=== PATIENT | male | born 1935 | race Caucasian/White ===

== ENCOUNTER → 2019-07-14 | Outpatient (CLI) | payer OTHER | LOC: SJCVCIMAG 06-25 10:59 | DX: I49.3 Ventricular premature depolarization (principal); I48.0 Paroxysmal atrial fibrillation; I42.9 Cardiomyopathy, unspecified; J44.9 Chronic obstructive pulmonary disease, unspecified; I25.10 Atherosclerotic heart disease of native coronary artery without angina pectoris; I13.0 Hypertensive heart and chronic kidney disease with heart failure and stage 1 through stage 4 chronic kidney disease, or unspecified chronic kidney disease; N18.9 Chronic kidney disease, unspecified; I50.9 Heart failure, unspecified; E78.00 Pure hypercholesterolemia, unspecified; R60.9 Edema, unspecified; Z79.82 Long term (current) use of aspirin; Z79.899 Other long term (current) drug therapy; Z87.891 Personal history of nicotine dependence ==

== ENCOUNTER → 2019-07-22 | Outpatient (CLI) | payer OTHER ==
[~2019-07-22] VITALS: Ht 170.2 cm; Wt 90.7 kg
[~2019-07-22] MED LIST: ALLOPURINOL 10100 M1 PO; ALPHAGAN P15 ML; ASA81BEC PO; B COMPLEX WITH1 EAC1 PO; BENICAR40 MG PO; BYSTOLIC10 MG PO; CALCIUM500 MG PO; CARDIZEM SR 60M60 MG PO; NAPROXEN SODIU220 M2 PO; PAIN RELIEF325 MG PO; PROAIR HFA8.5 GM INH; SPIRIVA RESPIMAT4 G1 INH; SUPER THERAVIT1 EACH PO; SYMBICORT160 MCG/4. INH; ULTRAM50 MG PO; VITAMIN D210 MCG PO; XALATAN2.5 ML OPHTHALMIC; ZANAFLEX4 M2 PO; ZETIA10 MG PO; ZOCOR 20 MG TAB20 M1 PO
[2019-07-22 08:12] VITALS: BP 181/80
[2019-07-22 08:14] LABS: HEMATOCRIT 40.2 % (42.0-52.0); HEMOGLOBIN 13.7 gm/dL (14.0-18.0); MCH 35.5 pg (26.0-34.0); MCHC 34.2 g/dL (28.0-37.0); MCV 103.7 fL (80.0-100.0); RBC 3.88 mil/uL (4.50-6.00); RDW 13.2 % (10.5-14.5); WBC 8.1 thou/uL (4.0-11.0)
[2019-07-22 08:22] LABS: CALCIUM 9.3 mg/dL (8.5-10.1); CREATININE 1.7 mg/dL (0.7-1.3); POTASSIUM 4.8 mmol/L (3.5-5.1)
--- NOTE | 2019-07-22 08:53 | EKG ---
[facility] [place] [address] ELECTROCARDIOGRAM REPORT Name: SUNITA AMADO Room #: [facility].#: [id number] Admission: 07/22/19 Attend Phys: Silvestre Lacey MD Discharge: Date of : 31 Report #: [id number] THIS REPORT FOR: cc: Jesu Estrada MD, Curtis MD Lundgren,Chuck Spence MD [facility] ~ THIS REPORT FOR: //name// [facility] Test Date: 2019-07-22 Test Time: 07:58:24 Pat Name: SUNITA AMADO Department: Room: Gender: Director Technical: [facility] : 1935 Requested By: Silvestre Lacey Order Number: [id number] MD: Chuck Cornejo Measurements Intervals [place] Rate: 67 P: 71 AL: 182 QRS: -15 QRSD: 101 T: 94 QT: 403 QTc: 426 Interpretive Statements Sinus rhythm Ventricular premature complex Nonspecific T abnormalities, lateral leads No previous ECG available for comparison Electronically Signed On 07-22-2019 8:52:25 CDT by Chuck Cornejo [email or web address] <ELECTRONICALLY SIGNED> By: Chuck Cornejo MD, [facility] 07/22/19 [phone] [id number] Chuck Cornejo MD, [facility] /EPI
--- NOTE | 2019-07-23 09:57 | CATHLAB ---
[facility] [place] [address] INVASIVE PROCEDURE REPORT Name: SUINTA AMADO Room #: REG [facility].#: [id number] Admission: 07/22/19 Attend Phys: Silvestre Lacey MD Discharge: Date of : 31 Report #: [id number] THIS REPORT FOR: cc: Jesu Estrada MD, Curtis MD Park, Jin S. MD ~ APPROVED REPORT Study performed: 07/22/2019 12:37:00 Patient Details Patient Status: Out-Patient Room #: The patient is a 83 year-old male Event Personnel Silvestre Lacey Cloth Layer, Danae Watson CVT Monitor, Radha Sadler RN, Radha Sadler RN, Erick Finley RN RN, Brady Hdz RTR Scrub Procedures Performed Art Access - R femoral artery* Left Heart Cath w/or w/o Coronaries [id number] [facility] Hemostasis with Manual pressure 84901 Initial Mod Sed Same Phys/QHP Gr5y [id number] 45252 Mod Sed Same Phys/QHP Ea 455751 Indication Dyspnea, Positive stress test Risk Factors Hypercholesterolemia, Coronary Artery DiseaseHypertension Previous Procedures/Diagnoses Previous PCI Procedure Narrative The Right Groin^ was infiltrated with subcutaneous anesthesia. A PINNACLE 4FR Sheath #[id number] sheath was inserted into the RFA 4FR^. Coronary angiography was performed using coronary diagnostic catheters. The right coronary system was accessed and visualized with a JR4 catheter. The left coronary system was accessed and visualized with a JL4 catheter. The left ventricle was accessed and visualized with a PIGTAIL catheter. Hemostasis was obtained with manual pressure following sheath removal without any complications. The patient tolerated the procedure well and there were no complications [facility] [address] [place] [address] INVASIVE PROCEDURE REPORT Name: SUNITA AMADO Room #: REG [facility]#: [id number] Admission: 07/22/19 Attend Phys: Silvestre Lacey MD Discharge: Date of : 31 Report #: [id number] associated with the procedure. There was no hematoma. Intraoperative Conscious Sedation Sedation start time: 1301 Case end Time: 1332 Fentanyl 50 mcg Versed 1 mg Fluoro Time: 3.7 minutes Dose: DAP 4508 cGycm2 991 mGy Contrast Type and Amount: VISI 50 Coronary Angiography The patient's coronary anatomy is right dominant. Diagnostic Cath Left Main The left main is a large-caliber vessel, angiographically normal. LAD There is a stent in the proximal segment, patent with minimal restenosis. There is mild disease in the midsegment, 20%. Circumflex This is a patent vessel, with no flow-limiting lesions. OM1 There is mild diffuse disease in the proximal segment, 20%. Right Coronary There is a patent stent in the midsegment with minimal restenosis. There is mild disease in the proximal and distal segments, 20%. R PDA The PDA has mild disease proximally, 20%. RPLV This is a patent vessel, with no flow-limiting lesions. Ramus This is a moderate-sized caliber vessel, with mild disease proximally. Left Ventriculography Left Ventriculography was not performed. Ejection Fraction was 55-60% based off patient's Nuclear Cardiac Stress Test. An LVEDP was measured and there is no gradient across the outflow tract. Hemodynamics The aortic pressure is 162/72 mmHg with a mean of 80 mmHg. The left ventricular pressure is 164/10 mmHg with a mean of mmHg. The left ventricular end diastolic pressure is 18 mmHg. Conclusion 1. There are patent stents in the proximal LAD and mid RCA [facility] [address] [place] [address] INVASIVE PROCEDURE REPORT Name: SUNITA AMADO Room #: REG [facility]#: [id number] Admission: 07/22/19 Attend Phys: Silvestre Lacey MD Discharge: Date of : 31 Report #: [id number] segments. 2. 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 3. Normal LV systolic function. 4. Recommend aggressive risk factor management. <ELECTRONICALLY SIGNED> By: Silvestre Lacey MD 07/23/19 [id number] Silvestre Lacey MD /INF
== END | disposition home or self-care (01) ==
LOC: CATH 07:16
PROVIDERS: ATTEND Internal Medicine Cardiovascular Disease
DX: R06.00 Dyspnea, unspecified (principal); R94.39 Abnormal result of other cardiovascular function study; I25.10 Atherosclerotic heart disease of native coronary artery without angina pectoris; I13.10 Hypertensive heart and chronic kidney disease without heart failure, with stage 1 through stage 4 chronic kidney disease, or unspecified chronic kidney disease; N18.9 Chronic kidney disease, unspecified; J44.9 Chronic obstructive pulmonary disease, unspecified; I50.9 Heart failure, unspecified; I42.9 Cardiomyopathy, unspecified; H40.9 Unspecified glaucoma; I48.0 Paroxysmal atrial fibrillation; E78.5 Hyperlipidemia, unspecified; Z98.890 Other specified postprocedural states; Z79.899 Other long term (current) drug therapy; Z79.01 Long term (current) use of anticoagulants; Z79.82 Long term (current) use of aspirin

== ENCOUNTER → 2019-08-06 | Outpatient (CLI) | payer OTHER | LOC: SJCVC 11:25 | PROVIDERS: ATTEND Internal Medicine Cardiovascular Disease | DX: I25.10 Atherosclerotic heart disease of native coronary artery without angina pectoris (principal); R94.31 Abnormal electrocardiogram [ECG] [EKG]; E78.00 Pure hypercholesterolemia, unspecified; I13.0 Hypertensive heart and chronic kidney disease with heart failure and stage 1 through stage 4 chronic kidney disease, or unspecified chronic kidney disease; I50.9 Heart failure, unspecified; N18.9 Chronic kidney disease, unspecified; Z79.899 Other long term (current) drug therapy; Z87.891 Personal history of nicotine dependence ==